=== PATIENT | male | born 1985 | race Caucasian/White ===

== ENCOUNTER 2016-10-29 19:38 | Emergency (ER) | payer BC ==
--- NOTE | 2016-11-04 08:46 | ER ---
ADMIT: 10/29/2016 RM/LOC: ER [facility] MR#: [id number] [address] [address] RICCARDO TAYLOR [address] [place] [address] Emergency Room Report SEX: M AGE: 31 : 1985 DATE: 10/29/2016 CHIEF COMPLAINT: Congestion, vomiting. HISTORY OF PRESENT ILLNESS: This is a pleasant 31-year-old male, who presents with a day's duration of increasing sinus congestion and vomiting x2. The patient states he has been dealing with a sinus infection for the past month, has been on a course of Z-Guanakito as well as cefdinir for 10 days and steroids. He finished this course on , felt like he was improved. He states yesterday, he began feeling worse again with similar sinus congestion, pain, headache, and fever. Woke up this morning with vomiting x2. No blood, has mild diffuse abdominal pain. Did have reaction to the Z-Guanakito the first time he was on it and has a known allergy to amoxicillin. COURSE IN THE EMERGENCY ROOM: The patient was seen and examined. He is afebrile and nontoxic, 97% on room air. However, conversing with him during the history, he does drop sats to 91% to 92%. I did check a chest x-ray on him, negative for any acute infiltrates. Neck was soft and supple. Respiratory; no respiratory distress. It did seem somewhat decreased in the left upper. No wheezes, rhonchi, or rales. Heart was regular, slightly tachycardic. Abdomen was soft, no distention. He did complain of mild discomfort with palpation. Skin was warm and dry, intact. No pedal edema. He is oriented. I did check CBC. White count 11.5, hemoglobin 14.6, hematocrit 41.9, platelets 143. Chemistry; sodium 138, potassium 4.0, BUN 14, glucose 104, creatinine 1.2. He was given his first dose of Levaquin 500 mg p.o. prior to discharge. IMPRESSION: Acute bacterial sinusitis. DISPOSITION: The patient was discharged on Levaquin 500 mg p.o. daily x5 days. He is to follow up with his primary care physician next week. Certainly continue to push fluids. Use Tylenol and ibuprofen as needed for pain and fever. Continue all home medications. Return with any worsening signs or symptoms. Tylenol or Motrin as needed for pain. Questions sought and answered to the best of my ability and to the patient's satisfaction. Discharged in stable condition. MAYNOR Mckinley / Chucky Newell MD / leticial JOB #: [id number] CC: Ayan Rice MD, Attending Physician Meliza Hu MD, Family Physician
== END 2016-10-29 21:40 | disposition home or self-care (01) ==
LOC: ER 19:38
DX: J01.90 Acute sinusitis, unspecified (principal); B96.89 Other specified bacterial agents as the cause of diseases classified elsewhere; E07.9 Disorder of thyroid, unspecified; Z79.899 Other long term (current) drug therapy; Z88.1 Allergy status to other antibiotic agents; Z87.891 Personal history of nicotine dependence

== ENCOUNTER 2017-03-11 08:36 | Emergency (ER) | payer BC ==
--- NOTE | 2017-03-14 09:47 | ER ---
ADMIT: 03/11/2017 RM/LOC: ER [facility] MR#: [id number] [address] [id number] CLAUDIAALBINRamin Gruber [address] [place] [address] Emergency Room Report SEX: M AGE: 32 : 1985 DATE: 03/11/2017 ADDENDUM: CHIEF COMPLAINT: Right maxillary pain going into his ear and into his jaw. Also, he has some lymphadenopathy in his neck. I told him it seems to be a sinus infection especially since these symptoms have been going on for 3 to 4 weeks. I am discharging him home with amoxicillin. Having him push fluids. Follow up with primary care physician if symptoms do not resolve. CLINICAL IMPRESSION: Sinusitis. MAYNOR Tripathi / Mik James MD / lashawn JOB #: [id number] CC: Mik James MD, Attending Physician UNKNOWN, Family Physician
== END 2017-03-11 09:54 | disposition home or self-care (01) ==
LOC: ER 08:36
DX: J32.9 Chronic sinusitis, unspecified (principal); E03.9 Hypothyroidism, unspecified; K21.9 Gastro-esophageal reflux disease without esophagitis; Z79.899 Other long term (current) drug therapy

== ENCOUNTER 2017-03-25 16:03 | Emergency (ER) | payer BC ==
--- NOTE | ~2017-03-25 | ER ---
ADMIT: 03/25/2017 RM/LOC: ER [facility] MR#: [id number] [address] [address] RICCARDO TAYLOR [address] [place] [address] Emergency Room Report SEX: M AGE: 32 : 1985 DATE: 03/25/2017 ADDENDUM: The patient comes to the ER because he has had pain in his right hand for 5 days. He has had no injury. Does not know why he has pain, has become so unbearable that he is unable to sleep. He was seen in our ER yesterday and put on prednisone and Clarion. On physical exam, his hand is not swollen. He is able to move all of his digits. Capillary refill is normal and pulses are equal bilaterally. I did consult with Dr. Rebolledo concerning the treatment of this patient, who saw the patient yesterday. We will have the patient continue with the prednisone and Clarion that he was given, and he is to follow up with a hand specialist, Dr. Robles. Please see my T-sheet. MAYNOR Rivera / Axel Rebolledo MD / lashawn JOB #: [id number] CC: Axel Rebolledo MD, Attending Physician Meliza Hu MD, Family Physician
== END 2017-03-25 16:42 | disposition home or self-care (01) ==
LOC: ER 16:03
DX: S63.501A Unspecified sprain of right wrist, initial encounter (principal); K21.9 Gastro-esophageal reflux disease without esophagitis; E03.9 Hypothyroidism, unspecified; X58.XXXA Exposure to other specified factors, initial encounter